=== PATIENT | female | born 1970 | race Caucasian/White ===

== ENCOUNTER 2018-11-04 11:22 | Emergency (ER) | payer BC, MEDICAID ==
[~2018-11-04] VITALS: Ht 165.1 cm; Wt 82.0 kg
[~2018-11-04 11:22] MED LIST: METF-950 PO
[2018-11-04 12:34] LABS: CLARITY,URINE CLEAR (Clear); COLOR,URINE STRAW (Yellow); GLUCOSE, URINE NEGATIVE (Neg); KETONES,URINE NEGATIVE (Neg); LEUKOCYTE ESTERASE ,URINE NEGATIVE (Neg); NITRITES, URINE NEGATIVE (Neg); OCCULT BLOOD,URINE NEGATIVE (Neg); PH,URINE 5.5 (4.8-8.0); PROTEIN,URINE NEGATIVE (Neg); UROBILINOGEN,URINE 0.2 E.U/dL (0.2-1.0)
[2018-11-04 12:35] LABS: BASOPHILS % (AUTO) 0.5 % (0-1); EOSINOPHILS # (AUTO) 0.3 X10'3 (0-0.9); EOSINOPHILS % (AUTO) 3.8 % (0-6); HEMATOCRIT 37.5 % (35.0-45.0); HEMOGLOBIN 12.9 g/dl (12.0-16.0); LYMPHOCYTES # (AUTO) 2.2 X10'3 (1.1-4.8); LYMPHOCYTES % (AUTO) 26.2 % (21-51); MEAN CORPUSCULAR HEMOGLOBIN 32.3 PG (27.0-31.0); MEAN CORPUSCULAR HGB CONC 34.4 g/dL (33.0-36.5); MEAN CORPUSCULAR VOLUME 93.9 FL (78-98); MEAN PLATELET VOLUME 7.9 FL (7.4-10.4); MONOCYTES # (AUTO) 0.4 X10'3 (0-0.9); MONOCYTES % (AUTO) 4.5 % (2-12); NEUTROPHILS # (AUTO) 5.4 X10'3 (1.8-7.7); PLATELET COUNT 198 X10'3 (140-440); RED BLOOD COUNT 3.99 X10'6 (4.20-5.60); RED CELL DISTRIBUTION WIDTH 13.1 % (11.5-14.5); WHITE BLOOD COUNT 8.3 X10'3 (4.5-11.0)
[2018-11-04 12:36] LABS: UA COLLECTION TYPE NON-SPECIFIED; URINE HCG NEGATIVE (NEG)
[2018-11-04 12:48] LABS: INR 0.9 INR; PROTHROMBIN TIME 9.6 SECONDS (9.0-12.0)
[2018-11-04 12:57] LABS: ALBUMIN 3.6 G/DL (3.4-5.0); ALBUMIN/GLOBULIN RATIO 1.1 (1.1-1.5); ANION GAP 9 (8-16); ASPARTATE AMINO TRANSFERASE 17 U/L (10-37); BILIRUBIN,TOTAL 0.3 MG/DL (0.1-1.0); BLOOD UREA NITROGEN 10 MG/DL (7-18); BUN/CREATININE RATIO 10.1 (6.6-38.0); CALCIUM 8.8 MG/DL (8.5-10.1); CHLORIDE 103 MMOL/L (99-107); CREATININE 0.99 MG/DL (0.40-0.90); GLUCOSE 163 MG/DL (70-104); POTASSIUM 3.5 MMOL/L (3.5-5.1); SODIUM 137 MMOL/L (135-145); TOTAL CARBON DIOXIDE 24.8 MMOL/L (24-32); TOTAL PROTEIN 6.8 G/DL (6.4-8.2); eGFR 60 ML/MIN
[2018-11-04 12:58] LABS: ALANINE AMINOTRANSFERASE 25 U/L (12-78); ALKALINE PHOSPHATASE 60 IU/L (46-116)
[2018-11-04] MEDS ORDERED: HYDR-4353 PO (14:10)
[2018-11-04 14:39] VITALS: BP 139/83
== END 2018-11-04 14:35 | disposition home or self-care (01) ==
LOC: ER 11:23
DX: K76.89 Other specified diseases of liver (principal); R10.31 Right lower quadrant pain; Z90.49 Acquired absence of other specified parts of digestive tract; Z90.710 Acquired absence of both cervix and uterus; Z98.51 Tubal ligation status; Z88.0 Allergy status to penicillin; Z88.1 Allergy status to other antibiotic agents; Z88.8 Allergy status to other drugs, medicaments and biological substances
CPT/HCPCS: 36415; 80053; 81003; 81025; 85025; 85610; 99283; 99284

== ENCOUNTER 2020-08-26 14:07 | Outpatient (CLI) | payer BC ==
[2020-08-26] MEDS ORDERED: APIX5TAB3 PO ×2 (16:22)
[2020-08-26] MEDS ORDERED: ENOX40SY7 SUBCUT (16:54)
== END 2020-08-26 23:59 | disposition home or self-care (01) ==
LOC: VAS 14:07
PROVIDERS: ATTEND Podiatrist Foot & Ankle Surgery
DX: I82.461 Acute embolism and thrombosis of right calf muscular vein (principal)
CPT/HCPCS: 93970

== ENCOUNTER 2020-08-26 15:20 | Emergency (ER) | payer BC ==
[~2020-08-26] VITALS: Ht 165.1 cm; Wt 71.8 kg
[2020-08-26] MEDS ORDERED: apixaban 5mg tablet PO ONE (16:20)
[2020-08-26] MEDS ORDERED: APIX5TAB3 PO ×2 (16:22)
[2020-08-26 16:43] LABS: BASOPHILS % (AUTO) 0.7 % (0-1); EOSINOPHILS # (AUTO) 0.2 X10'3 (0-0.9); EOSINOPHILS % (AUTO) 2.7 % (0-6); HEMATOCRIT 40.7 % (35.0-45.0); HEMOGLOBIN 14.1 g/dl (12.0-16.0); LYMPHOCYTES # (AUTO) 2.6 X10'3 (1.1-4.8); LYMPHOCYTES % (AUTO) 40.4 % (21-51); MEAN CORPUSCULAR HEMOGLOBIN 32.3 PG (27.0-31.0); MEAN CORPUSCULAR HGB CONC 34.7 g/dL (33.0-36.5); MEAN CORPUSCULAR VOLUME 93.3 FL (78-98); MEAN PLATELET VOLUME 7.7 FL (7.4-10.4); MONOCYTES # (AUTO) 0.4 X10'3 (0-0.9); MONOCYTES % (AUTO) 6.2 % (2-12); NEUTROPHILS # (AUTO) 3.2 X10'3 (1.8-7.7); PLATELET COUNT 181 X10'3 (140-440); RED BLOOD COUNT 4.37 X10'6 (4.20-5.60); WHITE BLOOD COUNT 6.4 X10'3 (4.5-11.0)
[2020-08-26] MEDS ORDERED: ENOX40SY7 SUBCUT (16:54)
[2020-08-26] MEDS ORDERED: enoxaparin 80mg/0.8ml syringe SUBCUT ONE (16:55)
[2020-08-26 16:59] LABS: ALANINE AMINOTRANSFERASE 22 U/L (12-78); ALBUMIN 3.7 G/DL (3.4-5.0); ALKALINE PHOSPHATASE 109 IU/L (46-116); ANION GAP 8 (8-16); ASPARTATE AMINO TRANSFERASE 12 U/L (10-37); BILIRUBIN,TOTAL 0.5 MG/DL (0.1-1.0); BLOOD UREA NITROGEN 17 MG/DL (7-18); BUN/CREATININE RATIO 19.8 (6.6-38.0); CALCIUM 8.9 MG/DL (8.5-10.1); CHLORIDE 99 MMOL/L (99-107); CREATININE 0.86 MG/DL (0.40-0.90); GLUCOSE 312 MG/DL (70-104); POTASSIUM 3.7 MMOL/L (3.5-5.1); SODIUM 135 MMOL/L (135-145); TOTAL CARBON DIOXIDE 28.2 MMOL/L (24-32); TOTAL PROTEIN 7.3 G/DL (6.4-8.2); eGFR 70 ML/MIN
[2020-08-26 17:28] VITALS: BP 156/76
== END 2020-08-26 17:33 | disposition home or self-care (01) ==
LOC: ER 15:21
DX: I82.4Z1 Acute embolism and thrombosis of unspecified deep veins of right distal lower extremity (principal); E11.9 Type 2 diabetes mellitus without complications; Z90.49 Acquired absence of other specified parts of digestive tract; Z90.710 Acquired absence of both cervix and uterus; Z98.51 Tubal ligation status; Z98.890 Other specified postprocedural states
CPT/HCPCS: 36415; 80053; 85025; 85610; 96372; 99283; J1650

== ENCOUNTER → 2022-06-05 | Day surgery (SDC) | payer BC ==
[2022-06-01 10:22] LABS: BASOPHILS # (AUTO) 0.1 X10'3 (0-0.2); BASOPHILS % (AUTO) 0.9 % (0-1); EOSINOPHILS # (AUTO) 0.2 X10'3 (0-0.9); EOSINOPHILS % (AUTO) 2.5 % (0-6); LYMPHOCYTES # (AUTO) 2.5 X10'3 (1.1-4.8); LYMPHOCYTES % (AUTO) 39.7 % (21-51); MEAN CORPUSCULAR HEMOGLOBIN 31.5 PG (27.0-31.0); MEAN CORPUSCULAR HGB CONC 34.6 g/dL (33.0-36.5); MEAN CORPUSCULAR VOLUME 91.2 FL (78-98); MEAN PLATELET VOLUME 7.4 FL (7.4-10.4); MONOCYTES # (AUTO) 0.3 X10'3 (0-0.9); MONOCYTES % (AUTO) 4.4 % (2-12); NEUTROPHILS # (AUTO) 3.3 X10'3 (1.8-7.7); NEUTROPHILS % (AUTO) 52.5 % (42-75); PRE OP HEMATOCRIT 41.7 % (35.0-45.0); PRE OP HEMOGLOBIN 14.4 g/dL (12.0-16.0); PRE OP PLATELET COUNT 217 X10'3 (140-440); RED BLOOD COUNT 4.58 X10'6 (4.20-5.60); RED CELL DISTRIBUTION WIDTH 13.5 % (11.5-14.5)
[2022-06-01 10:23] LABS: CLARITY,URINE CLEAR (Clear); COLOR,URINE YELLOW (Yellow); GLUCOSE, URINE NEGATIVE (Neg); KETONES,URINE NEGATIVE (Neg); LEUKOCYTE ESTERASE ,URINE NEGATIVE (Neg); NITRITES, URINE NEGATIVE (Neg); OCCULT BLOOD,URINE NEGATIVE (Neg); PH,URINE 5.5 (4.8-8.0); PROTEIN,URINE NEGATIVE (Neg); UROBILINOGEN,URINE 0.2 E.U/dL (0.2-1.0)
[2022-06-01 10:24] LABS: UA COLLECTION TYPE CLN CATCH MIDSTREAM
[2022-06-01 10:36] LABS: ALBUMIN 3.8 G/DL (3.4-5.0); ALBUMIN/GLOBULIN RATIO 1.2 (1.1-1.5); ALKALINE PHOSPHATASE 115 IU/L (46-116); BLOOD UREA NITROGEN 19 MG/DL (7-18); BUN/CREATININE RATIO 17.4 (6.6-38.0); CHLORIDE 105 MMOL/L (99-107); CREATININE 1.09 MG/DL (0.40-0.90); PRE OP ALT 21 U/L (30-65); PRE OP ANION GAP 8 (8-16); PRE OP AST 18 U/L (10-37); PRE OP BILIRUB, TOTAL 0.3 MG/DL (0.0-1.0); PRE OP GLUCOSE 129 MG/DL (70-104); PRE OP POTASSIUM 3.5 MMOL/L (3.4-5.1); PRE OP SODIUM 140 MMOL/L (135-145); TOTAL CARBON DIOXIDE 26.7 MMOL/L (24-32); TOTAL PROTEIN 7.1 G/DL (6.4-8.2); eGFR 53 ML/MIN
[~2022-06-05] VITALS: Ht 165.1 cm; Wt 77.3 kg
[2022-06-05] VITALS (8 sets, daily range): BP systolic 123–143; BP diastolic 76–93
[~2022-06-05] MED LIST changes: +BUPIVAcaine/PF 7.5mg/ml (0.75%) 10ml vial ONE; +ERGO500054 PO; +EZET10TA48 PO; +FENTANYL CITRATE/PF 50 MCG/1 ML VIAL ONE; +INSU200I4 SQ; +LIDOcaine 1%/PF 5ML 10 MG/ML VIAL ONE; -METF-950 PO; +MIDAZolam 1 MG/ML 5ML VIAL ONE; +OMEP40CA21 PO; +ROPIVAcaine 0.5% (5mg/ml) 30ml vial ONE; +TIRZ2.5P SQ; +TOPI50TA24 PO; +[UNRECOGNIZED DRUG - CODE]; +bacitracin 15gm ointment TP ONE; +ceFAZolin 1,000 MG in NS 50ML IVPB IV ONE; +cloNIDine hcl/PF 100mcg/ml inj ONE; +famotidine 20mg tablet PO ONE; +meperidine/PF 25mg/ml syringe IV PRN; +morphine 2 MG/ML inj. syringe IV PRN; +morphine 4 MG/ML inj SYRINge IV PRN; +ondansetron/PF 4mg/2ml inj IV PRN; +ondansetron/PF 4mg/2ml inj ONE; +proCHLORperazine 10 MG/2 ml inj IV PRN; +propofol inj 20 ML IV ONE; +ringers solution, lacted 1,000 ML IV SCH
--- NOTE | 2022-06-05 13:05 | NUR ---
Received from OR via NED , accompanied by Anesthesiologist PRACHI and report given by Anesthesiolgist. RUDDYNET WITH 20G PIV IN RIGHT UE RUNNING LR AT 100. VSS. DENIES PAIN, SPLINT TO LEFT FOOT THAT IS CDI. TOES ALL PWD AND + CSM. PATIENT NOW ON BEDPAN. 10L MASK ON WITH 100% SATURATIONS. Addendum: 06/05/22 at 1318 by Javed Douglass RN, RN Amended: Links added.
--- NOTE | 2022-06-05 13:45 | NUR ---
ALL DISCHARGE CRITERIA HAS BEEN MET. VSS, PAIN AT A TOLERABLE LEVEL, VOIDED AND ABLE TO SAFELY AMBULATE AND TRANSFER SELF. IV TAKEN OUT WITHOUT ANY COMPLICATIONS. ALL DISCHARGE INSTRUCTIONS COVERED WITH PATIENT AND ALL QUESTIONS ANSWERED. PATIENT TAKEN OUT VIA WHEELCHAIR TO PERSONAL VEHICLE WHERE FAMILY/FRIEND DROVE PATIENT HOME. Addendum: 06/05/22 at 1411 by Javed Douglass RN, RN Amended: Links added.
== END | disposition home or self-care (01) ==
LOC: PAS 07:30
PROVIDERS: ATTEND Podiatrist Foot & Ankle Surgery
DX: M20.11 Hallux valgus (acquired), right foot (principal); D36.13 Benign neoplasm of peripheral nerves and autonomic nervous system of lower limb, including hip; G89.18 Other acute postprocedural pain; E11.9 Type 2 diabetes mellitus without complications; G43.909 Migraine, unspecified, not intractable, without status migrainosus; Z72.89 Other problems related to lifestyle; Z79.899 Other long term (current) drug therapy; Z82.49 Family history of ischemic heart disease and other diseases of the circulatory system; M19.011 Primary osteoarthritis, right shoulder; Z88.1 Allergy status to other antibiotic agents; Z88.8 Allergy status to other drugs, medicaments and biological substances; Z88.0 Allergy status to penicillin; Z88.6 Allergy status to analgesic agent; Z90.710 Acquired absence of both cervix and uterus; Z90.49 Acquired absence of other specified parts of digestive tract; Z98.890 Other specified postprocedural states
CPT/HCPCS: 28297; 28740; 36415; 64447; 64450; 64782; 73620; 76942; 80053; 81003; 82948; 85025; 93005; A6223; C1713; C1776; J0690; J0735; J2250; J2405; J2704; J2795; J3010; J3490; J7030; J7120; Z7506; Z7508; Z7512; 76000; A4215; A4618; A6449; A7000

== ENCOUNTER 2022-06-15 15:34 | Outpatient (CLI) | payer BC ==
[~2022-06-15 15:34] MED LIST changes: -BUPIVAcaine/PF 7.5mg/ml (0.75%) 10ml vial ONE; -FENTANYL CITRATE/PF 50 MCG/1 ML VIAL ONE; -LIDOcaine 1%/PF 5ML 10 MG/ML VIAL ONE; -MIDAZolam 1 MG/ML 5ML VIAL ONE; -ROPIVAcaine 0.5% (5mg/ml) 30ml vial ONE; -bacitracin 15gm ointment TP ONE; -ceFAZolin 1,000 MG in NS 50ML IVPB IV ONE; -cloNIDine hcl/PF 100mcg/ml inj ONE; -famotidine 20mg tablet PO ONE; -meperidine/PF 25mg/ml syringe IV PRN; -morphine 2 MG/ML inj. syringe IV PRN; -morphine 4 MG/ML inj SYRINge IV PRN; -ondansetron/PF 4mg/2ml inj IV PRN; -ondansetron/PF 4mg/2ml inj ONE; -proCHLORperazine 10 MG/2 ml inj IV PRN; -propofol inj 20 ML IV ONE; -ringers solution, lacted 1,000 ML IV SCH
== END 2022-06-15 23:59 | disposition home or self-care (01) ==
LOC: VAS 15:34
PROVIDERS: ATTEND Podiatrist Foot & Ankle Surgery
DX: M79.671 Pain in right foot (principal)
CPT/HCPCS: 93971

== ENCOUNTER 2022-08-24 15:53 | Outpatient (CLI) | payer BC | END 2022-08-24 23:59 | disposition home or self-care (01) | LOC: VAS 15:53 | PROVIDERS: ATTEND Podiatrist Foot & Ankle Surgery | DX: M79.671 Pain in right foot (principal) | CPT/HCPCS: 93971 ==

== ENCOUNTER 2023-07-19 10:45 | Emergency (ER) | payer BC ==
[~2023-07-19] VITALS: Ht 165.1 cm; Wt 67.5 kg
[~2023-07-19 10:45] MED LIST changes: +TOPI-253 PO; -TOPI50TA24 PO
[2023-07-19 11:16] VITALS: BP 132/93; PULSE 77; RESP 16; TEMP 97.6; O2SAT 99
[2023-07-19] MEDS ORDERED: CEPH-585 PO (11:25)
[2023-07-19] MEDS ORDERED: SULF1TAB49 PO (11:25)
== END 2023-07-19 11:34 | disposition home or self-care (01) ==
LOC: ER 10:46
DX: L03.213 Periorbital cellulitis (principal); E11.9 Type 2 diabetes mellitus without complications; Z90.49 Acquired absence of other specified parts of digestive tract; Z90.710 Acquired absence of both cervix and uterus; Z98.51 Tubal ligation status; Z79.899 Other long term (current) drug therapy; Z79.4 Long term (current) use of insulin; Z88.0 Allergy status to penicillin; Z88.1 Allergy status to other antibiotic agents; Z88.8 Allergy status to other drugs, medicaments and biological substances
CPT/HCPCS: 99283